=== PATIENT | male | born 1970 | race Caucasian/White ===

== ENCOUNTER → 2017-01-14 | Day surgery (SDC) | payer OTHER ==
[~2017-01-14] MED LIST: HYDROmorphone 0.5 MG/0.5 ML Syringe IVPUSH PRN; Ketorolac 30 MG/ML SDV IVPUSH PRN; Lidocaine 1% 30 ML SDV ONE; Lidocaine 1% 4 ML ONE; Midazolam 1 MG/ML 2 ML SDV ONE; Ondansetron 4 MG/2 ML SDV ONE; Propofol 200 MG/20 ML SDV ONE; Rocuronium 50 MG/5 ML Vial ONE; cefOXitin 2 GM in Premix Bag 1 BAG IV ONE; diphenhydrAMINE 50 MG/ML SDV IVPUSH PRN; fentaNYL 250 MCG/5 ML SDV IVPUSH PRN; fentaNYL 250 MCG/5 ML SDV ONE; metroNIDAZOLE/Normal Saline 500 MG in Premix Bag 1 BAG IV ONE
--- NOTE | 2017-01-14 16:11 | PCM.PREANE ---
Preanesthetic Assessment - Anesthesia/Transfusion/Family Hx Anesthesia History: Prior Anesthesia Without Reaction Family History of Anesthesia Reaction: No Transfusion History: No Prior Transfusion(s) - Review of Systems General: Fatigue, Malaise Pulmonary: No Symptoms Cardiovascular: No Symptoms Gastrointestinal: No symptoms Neurological: No Symptoms - Physical Assessment NPO Status Date: 01/13/17 NPO Status Time: 00:00 Pulse: 101 O2 Sat by Pulse Oximetry: 98 Respiratory Rate: 16 Blood Pressure: 130/88 Temperature: 38.1 C Height: 1.8 m Weight: 102.421 kg ASA Class: 2E Mental Status: Alert & Oriented x3 Airway Class: Mallampati = 1 Dentition: Reports: Normal Dentition Thyro-Mental Finger Breadths: 2 Mouth Opening Finger Breadths: 2 ROM/Head Extension: Full Lungs: Clear to auscultation, Normal respiratory effort Cardiovascular: Regular Rate, Regular Rhythm, No Murmurs - Allergies Allergies/Adverse Reactions: Allergies Allergy/AdvReac Type Severity Reaction Status Date / Time No Known Allergies Allergy Verified 01/14/17 16:04 - Anesthesia Plan Pre-Op Medication Ordered: None - Acknowledgements Anesthesia Type Planned: General Anesthesia Pt an Appropriate Candidate for the Planned Anesthesia: Yes Alternatives and Risks of Anesthesia Discussed w Pt/Guardian: Yes Pt/Guardian Understands and Agrees with Anesthesia Plan: Yes PreAnesthesia Questionnaire - Past Health History Medical/Surgical History: Denies Medical/Surgical History - SUBSTANCE USE Smoking Status *Q: Never Smoker Tobacco Use Within Last Twelve Months: No Second Hand Smoke Exposure: No Recreational Drug Use History: No - HOME MEDS Home Medications: Home Meds Ascorbic Acid [Vitamin C] 1 tab PO DAILY 01/14/17 [History] Multivitamin [Multivitamins] 1 tab PO DAILY 01/14/17 [History] Cameron-3 Fatty Acids [Fish Oil] 1 tab PO DAILY 01/14/17 [History] - CURRENT (IN HOUSE) MEDS Current Meds: Current Medications Discontinued Medications Dibucaine (Nupercainal 1% Oint) Confirm Administered Dose 28.35 gm .ROUTE .STK- MED ONE Stop: 01/14/17 15:41 Lidocaine HCl (Xylocaine-Mpf 1%) Confirm Administered Dose 30 ml .ROUTE .STK- MED ONE Stop: 01/14/17 15:41
--- NOTE | 2017-01-14 17:31 | PCM.OPNOTE ---
- General Post-Op/Procedure Note Date of Surgery/Procedure: 01/14/17 Operative Procedure(s): I&D analilia rectal abscess Pre Op Diagnosis: analilia rectal abscess Post-Op Diagnosis: Same Anesthesia Technique: General ET tube Primary Surgeon: Meng Miller EBL in mLs: 5 Complications: None Condition: Good
--- NOTE | 2017-01-14 17:44 | PCM.POSTAN ---
POST ANESTHESIA ASSESSMENT - MENTAL STATUS Mental Status: alert, oriented - VITAL SIGNS Pulse Rate: 103 SaO2: 96 Resp Rate: 20 Blood Pressure: 123/77 Temperature: 39.4 C - RESPIRATORY Respiratory Status: respiratory rate WNL, airway patent, O2 saturation stable, supplemental oxygen - CARDIOVASCULAR CV Status: pulse rate WNL, blood pressure stable, slow pulse rate - GASTROINTESTINAL GI Status: no symptoms - PAIN Pain Score: 2 - POST OP HYDRATION Hydration Status: adequate & stable - OBSERVATIONS Free Text/Narrative:: no anesthesia complications noted
[2017-01-14 18:35] VITALS: BP 105/73
--- NOTE | 2017-01-19 13:29 | OR ---
DATE OF OPERATION: 01/14/2017 SURGEON: Meng Miller MD PREOPERATIVE DIAGNOSIS: Perirectal abscess. POSTOPERATIVE DIAGNOSIS: Perirectal abscess. ANESTHESIA: Incision and drainage done under general anesthetic. OPERATION PERFORMED: Intersphincteric abscess pointing out without any fistulous connection to the anal canal. It was located on the left perianal area. DESCRIPTION OF PROCEDURE: The patient was taken to the operating room, placed in a supine position, connected to monitoring equipment, given a general anesthetic and intubated. The patient placed in lithotomy position. The perianal area was prepped and draped off in a sterile fashion. A palpation indicated a site on the left side towards anterior and this was incised. With incision in the perianal skin, entered abscess which extended up in the intersphincteric space. Once drained, it was packed open. The finger was inserted, all loculations broken and it was then packed open with a 1 inch Nu Gauze. The patient tolerated the procedure and sent to recovery room in a stable condition. ESTIMATED BLOOD LOSS: 5 mL. MMODAL /[id number]
== END | disposition home or self-care (01) ==
LOC: JD.SDS 15:44
PROVIDERS: ATTEND Surgery
DX: K61.1 Rectal abscess (principal)
CPT/HCPCS: 46040; 99284; J0694; J2250; J2405; J3010; 00902; A9270-GY; J2704